=== PATIENT | male | born 1970 | race Caucasian/White ===

== ENCOUNTER 2018-01-09 19:28 | Emergency (ER) | payer SELFPAY ==
[~2018-01-09 19:28] MED LIST: ISOVUE-370 76%-LOCM 1 ML ONE
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
== END 2018-01-09 21:11 | disposition home or self-care (01) ==
LOC: ERS 19:28
DX: S20.211A Contusion of right front wall of thorax, initial encounter (principal); V43.62XA Car passenger injured in collision with other type car in traffic accident, initial encounter
CPT/HCPCS: 71045; 71260; 74177; G0390